=== PATIENT | male | born 1970 | race Caucasian/White ===

== ENCOUNTER → 2017-08-10 | Outpatient (CLI) | payer MEDICARE, BC ==
[~2017-08-10] MED LIST: REGADENOSON 0.4 MG/5 ML SYRINGE IV ONE
--- NOTE | 2017-08-10 11:30 | EST ---
EXERCISE STRESS AGE: 46 SEX: M HT: 6' WT: 300 lbs. PROTOCOL: LEXISCAN CARDIOLITE STRESS TEST HEART RATE REST: 67 BLOOD PRESSURE REST: 136/88 MAXIMUM HEART RATE ACHIEVED: 97 MAXIMUM BLOOD PRESSURE: 138/89 85% MPHR: 150 100% MPHR: 176 INDICATIONS: Chest pain. CLINICAL INFORMATION: Baseline EKG shows sinus rhythm, normal axis, normal intervals. Patient was given Lexiscan as per protocol. Did not have chest pain or diagnostic ST-segment depression. Occasional PVCs were noted during Lexiscan infusion. CONCLUSION: 1. Negative stress test by EKG criteria. 2. Cardiolite portion of this stress test will be reported separately. MMODL / IJN: [id number] /
--- NOTE | 2017-08-10 11:39 | NM ---
EXAMINATION TYPE: NM stress lexiscan cardiolite DATE OF EXAM: 08/10/2017 COMPARISON: NONE HISTORY: Chest pain TECHNIQUE: After the intravenous administration of 9.97 mCi Tc 99m Sestamibi - Cardiolite resting SP ECT images acquired 45 minutes post injection. The patient received 0.4mg Lexiscan, 28 mCi Tc 99m Sestamibi - Stress images obtained 30 minutes post injection FINDINGS: Review of stress and rest SPECT images demonstrates suggestion of small reversible perfusion defect i nvolving the upper myocardial septum which may be artifactual.. Gated analysis shows normal wall mot ion with an estimated left ventricular ejection fraction of 60 %. IMPRESSION: 1. Ejection fraction is 60%. 2. Small reversible perfusion defect involving the upper myocardial septum most likely is artifactual but should be correlated clinically.
== END | disposition home or self-care (01) ==
LOC: RADNMMAIN 08:53
PROVIDERS: ATTEND Family Medicine
DX: R07.9 Chest pain, unspecified (principal)
CPT/HCPCS: 93017; 78452; A9500; J2785

== ENCOUNTER → 2021-10-17 | Outpatient (CLI) | payer MEDICARE ==
[~2021-10-17] MED LIST changes: -REGADENOSON 0.4 MG/5 ML SYRINGE IV ONE; +REGADENOSON 0.4 MG/5 ML SYRINGE IV PRN
--- NOTE | 2021-10-17 12:10 | P.STRESS ---
- Stress Test Note Stress Test Results/Findings: Exam Performed: NM stress lexiscan cardiolite Exam Date: 10/17/21 Reason for Exam: Chest Pain Height: 6 ft Weight: 145.15 kg Protocol: Lexiscan Stage: na Duration of Exercise: na Resting Heart Rate: 72 Resting Blood Pressure: 124/75 Maximum Achieved Heart Rate: 89 Maximum Achieved Blood Pressure: 128/73 85% PMHR: 145 100% PMHR: 171 METS: na Technologist Comment: Stress Test Results/Findings: Twelve-lead EKG showed sinus rhythm T-wave inversions in the inferior leads and V3-V6, occasional PVCs Normal blood pressure Patient received Lexiscan infusion per protocol No symptoms No hemodynamic changes No new EKG changes Impression No ECG evidence for ischemia during Lexiscan infusion Nuclear portion will be reported separately
--- NOTE | 2021-10-17 17:15 | NM ---
EXAMINATION TYPE: NM stress lexiscan cardiolite DATE OF EXAM: 10/17/2021 COMPARISON: NONE HISTORY: Chest pain, hypertension TECHNIQUE: After the intravenous administration of 10 mCi Tc 99m Sestamibi - Cardiolite resting SPEC T images acquired 55 minutes post injection. At peak stress 24.1 mCi Tc 99m Sestamibi - Stress images obtained 40 minutes post injection The patient was stressed with 0.4mg Lexiscan. FINDINGS: No fixed defects are evident No reversible stress defects on Spect images Wall motion is normal Ejection fraction is calculated to be 59 %. IMPRESSION: 1. No stress-induced ischemic changes.
== END | disposition home or self-care (01) ==
LOC: RADNMMAIN 07:47
PROVIDERS: ATTEND Family Medicine
DX: R07.9 Chest pain, unspecified (principal); I10 Essential (primary) hypertension
CPT/HCPCS: 93017; 78452; A9500; J2785